=== PATIENT | male | born 1960 | race Caucasian/White ===

== ENCOUNTER 2016-02-21 05:14 | Day surgery (SDC) | payer BC ==
[2016-02-01 09:35] VITALS: BMI 23.0
--- NOTE | 2016-02-01 10:08 | PAT Medication Instructions ---
Service Date Feb 01, 2016. Current Home Medication List Atorvastatin (Lipitor), 10 MG PO HS Fish Oil (Prospect-3), 1 CAP PO Multivitamin (Multivitamin), 1 TAB PO QAM Medication Instructions For Your Scheduled Surgery - Hold the following medications 2 weeks prior to surgery: Fish Oil (Prospect-3), 1 CAP PO - Hold the following medications the morning of surgery: Multivitamin (Multivitamin), 1 TAB PO QAM - Take the following medications as scheduled the night before surgery: Atorvastatin (Lipitor), 10 MG PO HS If you have any questions please call us at [phone] (Amanda Melchor PA-C) or [phone] or [phone]
[2016-02-01 10:48] LABS: BASO % 0.3 %; BASO ABS # 0.02 K/uL (0-0.2); COMPLETE YES; EOS % 1.7 %; HEMATOCRIT 42.1 % (42-52); IG% 0.1 %; LYMPH % 35.3 %; LYMPH ABS # 2.63 K/uL (1.2-3.4); MEAN CELL VOLUME 94.6 fL (80-100); MEAN CORPUSCULAR HGB CONC 34.9 g/dl (32-36); MEAN PLATELET VOLUME 10.5 fL (7.4-10.4); MONO % 6.8 %; NEUT % 55.8 %; PLATELET COUNT 208 K/uL (130-400); RED BLOOD COUNT 4.45 M/uL (4.7-6.1); WHITE BLOOD COUNT 7.46 K/uL (4.8-10.8)
--- NOTE | 2016-02-01 10:58 | DIAGNOSTIC IMAGING REPORT ---
CHEST PREADMISSION(PA/LAT) CLINICAL HISTORY: Preoperative evaluation COMPARISON STUDY: No previous studies for comparison. FINDINGS: Lung volumes are normal. There is no pneumothorax or pleural effusion. There is no evidence of pulmonary edema. Mild reticulonodular interstitial thickening is noted. Biapical opacities may reflect scarring. Cardiac size is normal. Mediastinal contours are normal. IMPRESSION: 1. No acute cardiopulmonary findings. 2. Mild nonspecific reticulonodular interstitial thickening. Electronically signed by: Eusebio Lawrence M.D. 02/01/2016 10:57 AM
[2016-02-01 11:27] LABS: BUN/CREATININE RATIO 18.3 (10-20); CREATININE 0.76 mg/dl (0.60-1.40); POTASSIUM 4.1 mmol/L (3.5-5.1)
[2016-02-01 11:35] LABS: CALCIUM 9.6 mg/dl (8.5-10.1)
[~2016-02-21] VITALS: Ht 190.5 cm; Wt 85.1 kg
[2016-02-21] VITALS (7 sets, daily range): BP systolic 110–137; BP diastolic 69–82; PULSE 61–74; TEMP 36.4–36.8; O2SAT 97–99; Ht 190.5 cm; Wt 85.1 kg
[~2016-02-21 05:14] MED LIST: ATOR10TA88 PO; MULT-506 PO; OMEG10007 PO
[2016-02-21] MEDS ORDERED: LACTATED RINGER'S 1000ML 1,000 ML IV SCH ×2 (06:00→09:13)
--- NOTE | 2016-02-21 06:16 | History & Physical Bridge Note ---
H&P Re-Evaluation Bridge Note: I have examined the patient, reviewed the History & Physical and in the interval since the performance of the History & Physical I have noted the following changes of clinical significance: No changes noted pt marked, no one at bedside
--- NOTE | 2016-02-21 06:27 | History and Physical ---
History & Physical Date Feb 21, 2016. History of Present Illness The patient is a 55 year old male with complaints of right groin pain Additional History Hepatic Disease: No Endocrine Disorder: No Kidney Disease: No Hypertension: No Heart Disease: No Bleeding Tendencies: No Infectious Diseases: No Allergies Coded Allergies: No Known Allergies (Unverified , 02/21/16) Home Medications Scheduled Atorvastatin (Lipitor), 10 MG PO HS Multivitamin (Multivitamin), 1 TAB PO QAM Miscellaneous Medications Fish Oil (Kemmerer-3), 1 CAP PO Physical Examination Skin: warm/dry, no rash Eyes: normal inspection, EOMI, sclerae normal ENT: normal ENT inspection, pharynx normal Head: normocephalic, atraumatic Neck: supple, no adenopathy, trachea midline Respiratory/Chest: lungs clear, normal breath sounds, no respiratory distress Cardiovascular: regular rate, rhythm, no edema, no murmur Abdomen / GI: + pertinent finding (right rec ing hernia testes normal possible left ing rec hernia) Back: normal inspection Extremities: normal inspection, normal range of motion Neurologic/Psych: no motor/sensory deficits, alert, normal reflexes, oriented x 3 Addiitonal Comments: s/p dex ing hernia repair open past Plan of Treatment laparoscopic right rec ing hernia repair possible open, possible left ing rec hernia repair
[2016-02-21] MEDS ORDERED: FENTANYL CITRATE INJ 50 MCG/1 ML 2 ML VIAL ONE ×2 (06:47→08:57)
[2016-02-21] MEDS ORDERED: LIDOCAINE HCL 2% 2 ML VIAL (20MG/ML) ONE (06:47)
[2016-02-21] MEDS ORDERED: GLYCOPYRROLATE INJ 0.2 MG/ML VIAL ONE (06:47)
[2016-02-21] MEDS ORDERED: PROPOFOL IV EMULSION 10 MG/ML 20 ML VIAL IV ONE (06:47)
[2016-02-21] MEDS ORDERED: MIDAZOLAM HCL 1 MG/ML 2ML VIAL ONE (06:47)
[2016-02-21] MEDS ORDERED: DEXAMETHASONE SOD INJ 4 MG/ML VIAL ONE (06:47)
[2016-02-21] MEDS ORDERED: ONDANSETRON INJ 2 MG/ML 2 ML VIAL ONE (06:47)
[2016-02-21] MEDS ORDERED: NEOSTIGMINE METHYLSULFATE 5 MG/5 ML SYR ONE (06:47)
[2016-02-21] MEDS ORDERED: CEFAZOLIN SOD 1 GM VIAL ONE (07:30)
[2016-02-21] MEDS ORDERED: BUPIVACAINE 0.5 % 5 MG/1 ML MPF 30ML VIAL INJ ONE (07:50)
[2016-02-21] MEDS ORDERED: BACITRACIN 50000 UNIT VIAL IR ONE (08:50)
[2016-02-21] MEDS ORDERED: KETOROLAC TROMETHAMINE 30 MG/ML VIAL ONE (09:02)
--- NOTE | 2016-02-21 09:13 | [facility] Post Operative Brief Note ---
Immediate Operative Summary Operative Date Feb 21, 2016. Pre-Operative Diagnosis Right recurrent, indirect inguinal hernia; left possible recurrent inguinal hernia. Post-Operative Diagnosis Right recurrent indirect inguinal hernia. Left direct recurrent inguinal hernia. Procedure(s) Performed laparoscopic repair both with surgimesh Surgeon Dr. Juliano Newsome Clinical Courier Surgeon(s) none Estimated Blood Loss 10mL Findings right indirect hernia, left direct hernia Specimens none, Per Surgeon
[2016-02-21] MEDS ORDERED: NALOXONE HCL 0.4 MG/1 ML VIAL/CARP IV PRN (09:15)
[2016-02-21] MEDS ORDERED: OXYCODONE/ACETAMINOPHEN 5-325 TAB PO PRN (09:15)
[2016-02-21] MEDS ORDERED: FLUMAZENIL 0.1 MG/1 ML 10 ML VIAL IV PRN (09:15)
[2016-02-21] MEDS ORDERED: ONDANSETRON INJ 2 MG/ML 2 ML VIAL IV PRN ×2 (09:15)
[2016-02-21] MEDS ORDERED: LABETALOL HCL IV 5 MG/ML 20ML IV PRN (09:15)
[2016-02-21] MEDS ORDERED: HYDROmorphone INJ 1 MG/ML SYR IV PRN ×2 (09:15)
[2016-02-21] MEDS ORDERED: PROMETHAZINE HCL INJ 12.5 MG in SODIUM CHLORIDE 0.9% 50ML 50 ML IV PRN (09:15)
[2016-02-21] MEDS ORDERED: ATROPINE SULFATE 0.1 MG/ML 5ML SYR IV PRN (09:15)
[2016-02-21] MEDS ORDERED: OXYC-57 PO (09:15)
[2016-02-21] MEDS ORDERED: EpHEDrine SULFATE INJ 50 MG/ML AMP IV PRN (09:15)
--- NOTE | 2016-02-21 09:18 | Discharge Instructions ---
Discharge Instructions Visit Reason for Visit: Recurrent Right Inguinal Hernia Discharge Discharge Diagnosis / Problem: s/p dex rec hernia repair with pal Discharge Goals Goal(s): Decrease discomfort Activity Recommendations Lifting Limitations: no more than 10 pounds (for one week) Exercise/Sports Limitations: none May Resume Sexual Activity: when tolerated Shower/Bathe: tomorrow Driving or Machine Use: resume 3 days after discharge (do not take pain meds when driving) Anesthesia . Post Anesthesia Instructions: If you have had General Anesthesia or IV Sedation: * Do not drive today. * Resume driving when surgeon permits. * Do not make important decisions or sign legal documents today. * Call surgeon for: 1. Temperature elevations greater than 101 degrees F. 2. Uncontrollable pain. 3. Excessive bleeding. 4. Persistent nausea and vomiting. 5. Medication intolerance (nausea, vomiting or rash). * For nausea and vomiting use only clear liquids such as: tea, soda, bouillon until nausea subsides, then gradually increase diet as tolerated. * If you have any concerns or questions, call your surgeon's office. If physician is unavailable and it is an emergency, call 911 or go to the nearest emergency room. . Diet Recommendations Recommended Home Diet: no limitations Procedures Procedures Performed: laparoscopic repair both with surgimesh Medical Emergencies . Who to Call and When: Medical Emergencies: If at any time you feel your situation is an emergency, please call 911 immediately. . Non-Emergent Contact Non-Emergency issues call your: Surgeon ([phone]) . . "Provider Documentation" section prepared by Juliano Newsome.
[2016-02-21] MEDS ORDERED: HYDROmorphone INJ 1 MG/ML SYR ONE (09:38)
--- NOTE | 2016-02-21 10:18 | Anesthesiology Progress Note ---
Anesthesia Post Op Note Date & Time Feb 21, 2016 at 10:17 Vital Signs Pain Intensity: 3 Vital Signs Past 12 Hours Date Time Temp Pulse Resp B/P Pulse Ox O2 Delivery O2 Flow Rate FiO2 02/21/16 10:10 60 16 115/72 99 Room Air 02/21/16 10:00 61 16 113/72 98 Room Air 02/21/16 09:50 62 16 121/71 100 Nasal Cannula 3 02/21/16 09:40 65 16 125/76 100 Nasal Cannula 3 02/21/16 09:30 64 18 139/77 100 Mask 10 02/21/16 09:20 36.2 72 18 144/81 100 Mask 10 02/21/16 05:39 36.7 74 20 137/82 97 Room Air Notes Mental Status: alert / awake / arousable, participated in evaluation Pt Amnestic to Procedure: Yes Nausea / Vomiting: adequately controlled Pain: adequately controlled Airway Patency, RR, SpO2: stable & adequate BP & HR: stable & adequate Hydration State: stable & adequate Anesthetic Complications: no major complications apparent
--- NOTE | 2016-02-21 11:19 | OPERATIVE REPORT ---
DATE OF OPERATION: 02/21/2016 PREOPERATIVE DIAGNOSIS: Recurrent right inguinal hernia, questionable left recurrent hernia. POSTOPERATIVE DIAGNOSIS: Recurrent right indirect inguinal hernia and recurrent left direct inguinal hernia. PROCEDURE: Laparoscopic repair of both with Surgimesh. SURGEON: Dr. Newsome. OPERATION AND FINDINGS: SUMMARY: The patient was brought into the operating room theater having voided before he entered the operating room theater. Under general anesthesia, the abdomen was prepped with Betadine scrubbing solution and properly draped. Systemic antibiotics were given. We made a small incision transversely above the umbilicus sufficient enough to get the abdominal wall with Americo clamps. An incision was made, deepened through subcutaneous tissue into the fascia, 0 Vicryl was used in this fashion. Under direct visualization, we entered the peritoneal cavity with some difficulty then eventually we found out that the patient around the umbilical area had a small hernia. We used a cut down procedure since the patient had a right lower quadrant incision from an appendectomy. Once we entered the peritoneal cavity after insufflated to approximately 15 under direct visualization, we were able to see that the patient's cecum was strictly adherent to the anterior abdominal wall and could also see a defect in the right indirect area and also on the left side had a direct weakness. At this point, under direct visualization, I placed a 5 mm right flank trocar with preemptive local analgesia 1% Xylocaine. This was done above the level of the umbilical area. With this fine scissors used to free up the adhesions that were elevating the cecum to the anterior abdominal wall. We had some preperitoneal insufflation, therefore I dissected down and helped us really dissect down the peritoneum down in the inguinal area. But having said this, I also placed a 5 mm in the left flank just a little below the level of the umbilicus lateral to the rectus with preemptive local analgesia 1% Xylocaine and under direct visualization placed a 5 mm trocar. We scored the peritoneum on the right groin area that we already opened more laterally when we had freed up the cecum. We took it out just at the inferior edge of the indirect defect all the way to the medial umbilical ligament. Needless to say, the patient had a very large indirect hernia going down into the canal and took some difficulty to free all this up. We were away from the cord, avoided it. We did have a little bit of oozing which came down just on the inferior edge of the Willam's ligament and then by the time we were finished, appeared to be hemostatic. We used some few clips along some vessels that were not to the cord. We needed to strip the cord somewhat off the hernial sac which we totally reduced all the way down to the peritoneal reflection. We identified Willam's ligaments in the indirect area. There was no direct component around the symphysis pubis. I elected to close this with Surgimesh which we used an 10 mm. I cut the inferior portion to sort of make it as a cupola and placed it under direct visualization into the abdomen, using the ProTack metal down to the Willam's ligament and completely closing the indirect ring and stayed away from the triangle of doom. The repair appeared to be solid as far as the mesh covering these 3 point of interest. I did cut the nylon suture once we had an appropriate orientation. After this, our attention was turned to the left inguinal area where we identified the hernia which was just lateral to the medial umbilical ligament, appeared to be in the symphysis pubis area. We dissected it out and a lot of peritoneal fat was encountered in that area. We finally identified what appeared to be a very small defect which we were able then to control by a piece of Surgimesh probably about 2 cm in diameter and about 3 cm long. We then placed it by prior closing the hernia defect in the direct area. We had placed some Surgicel before and then onlaid this mesh using the metal tackers. The 2 areas were checked for hemostasis and appeared satisfactory. We then closed the peritoneum over the mesh, even though it was not really necessary from the type of mesh that we used using metal tackers. Individual trocars were inspected as far as the entry point and no injury identified, each one were removed. We then closed the umbilical initial entry site with interrupted 0 Vicryl suture [id number]. At that time we noticed that the patient maybe had a little umbilical hernia coming through just above the umbilicus that made some difficulty on initial entry. Steri-Strips applied after 4-0 Monocryl. The procedure was tolerated well by the patient. Estimated blood loss approximately 10 mL. The patient was taken to recovery room in good condition. I attest to the content of the Intraoperative Record and any orders documented therein. Any exceptions are noted below. KARINAD
== END 2016-02-21 13:45 | disposition home or self-care (01) ==
LOC: C.ACU 05:14
PROVIDERS: ATTEND Surgery
DX: K40.21 Bilateral inguinal hernia, without obstruction or gangrene, recurrent (principal); K42.9 Umbilical hernia without obstruction or gangrene; Z98.890 Other specified postprocedural states

== ENCOUNTER → 2016-02-29 | Outpatient (CLI) | payer BC ==
[~2016-02-29] MED LIST changes: +OXYC-57 PO
[2016-02-29 12:50] LABS: CHOLESTEROL/HDL RATIO 3.6
== END | disposition home or self-care (01) ==
LOC: C.LABPVFM 08:36
PROVIDERS: ATTEND Family Medicine
DX: E78.5 Hyperlipidemia, unspecified (principal)

== ENCOUNTER → 2016-09-01 | Outpatient (CLI) | payer BC ==
[~2016-09-01] MED LIST changes: -OXYC-57 PO
[2016-09-01 12:50] LABS: CHOLESTEROL/HDL RATIO 3.8
== END | disposition home or self-care (01) ==
LOC: C.LABPVFM 08:16
PROVIDERS: ATTEND Family Medicine
DX: E78.5 Hyperlipidemia, unspecified (principal)

== ENCOUNTER → 2017-01-26 | Outpatient (CLI) | payer BC ==
[~2017-01-26] MED LIST changes: +ATOR10TA82 PO; -ATOR10TA88 PO
[2017-01-26 13:30] LABS: CHOLESTEROL/HDL RATIO 3.4
== END | disposition home or self-care (01) ==
LOC: C.LABPVFM 08:19
PROVIDERS: ATTEND Family Medicine
DX: Z11.59 Encounter for screening for other viral diseases (principal); E78.5 Hyperlipidemia, unspecified